=== PATIENT | female | born 1970 ===

== ENCOUNTER 2018-09-26 15:11 | Emergency (ER) | payer BC ==
--- NOTE | 2018-09-26 15:44 | UC ---
Lower Extremity/Ankle HPI - HPI Summary HPI Summary: Ms. Edwards woke up this morning with a painful second toe of her right foot at the base. She is not aware of any trauma. It is gradually gotten more painful and she now has swelling extending on the dorsum of her foot nearly up to her ankle. - History of Current Complaint Chief Complaint: UCLowerExtremity Stated Complaint: FOOT INJURY Time Seen by Provider: 09/26/18 15:33 Hx Obtained From: Patient ?: No Onset/Duration: Sudden Onset Severity Initially: Mild Severity Currently: Moderate Pain Intensity: 6 Aggravating Factor(s): Standing, Ambulation Alleviating Factor(s): Nothing - Risk Factors Gout Risk Factors: Age Over 40 - Allergies/Home Medications Allergies/Adverse Reactions: Allergies Allergy/AdvReac Type Severity Reaction Status Date / Time acetaminophen [From Percocet] Allergy Rash And Verified 09/26/18 15:26 Itching amoxicillin [From Augmentin] Allergy Vomiting Verified 09/26/18 15:26 clavulanic acid Allergy Vomiting Verified 09/26/18 15:26 [From Augmentin] oxycodone [From Percocet] Allergy Rash And Verified 09/26/18 15:26 Itching Home Medications: Home Medications Ascorbic Acid TAB* [Vitamin C TAB*] 1,000 mg PO DAILY 09/26/18 [History Confirmed 09/26/18] Calcium Carbonate [Calcium/C/D] 1 chw PO DAILY 09/26/18 [History Confirmed 09/26] Citalopram TAB* [CeleXA TAB*] 10 mg PO DAILY 09/26/18 [History Confirmed ] Multivitamin [Multivitamins] 1 cap PO DAILY 09/26/18 [History Confirmed 09/26/18 ] PMH/Surg Hx/FS Hx/Imm Hx Previously Healthy: Yes - Surgical History Surgical History: Yes Surgery Procedure, Year, and Place: c-sec 1x, uterine ablasion, arthroscopic orthopedics, laryngeal polyp removal, plastic - Social History Alcohol Use: Weekly Substance Use Type: None Smoking Status (MU): Heavy Every Day Tobacco Smoker Review of Systems All Other Systems Reviewed And Are Negative: Yes Constitutional: Positive: Negative Skin: Positive: Negative Musculoskeletal: Positive: Negative Physical Exam - Summary Physical Exam Summary: She is nontoxic in appearance with stable vital signs. Triage Information Reviewed: Yes Appearance: Well-Appearing Vital Signs: Initial Vital Signs Temp 99.5 F 09/26/18 15:20 Pulse 95 09/26/18 15:20 Resp 18 09/26/18 15:20 BP 150/87 09/26/18 15:20 Pulse Ox 100 09/26/18 15:20 Vital Signs Reviewed: Yes Respiratory Exam: Normal Cardiovascular Exam: Normal Musculoskeletal Exam: Other - She is tender and mildly erythematous over the dorsum of her foot. She has tenderness to range of motion of her second toe both passively and actively. Skin Exam: Normal Diagnostics - Radiology right foot Radiology Interpretation Completed By: Radiologist Summary of Radiographic Findings: No acute process Lower Extremity Course/Dx - Course Course Of Treatment: There is obviously an inflammatory component to this. She does not recall any trauma and my biggest concern would be that she has an early infection. I will treat her with Keflex and recommendation for anti-inflammatories. - Differential Dx/Diagnosis Provider Diagnosis: Cellulitis Discharge - Sign-Out/Discharge Documenting (check all that apply): Patient Departure All imaging exams completed and their final reports reviewed: Yes - Discharge Plan Condition: Stable Disposition: HOME Patient Education Materials: Cellulitis (ED) Referrals: No Primary Care Phys,NOPCP [Primary Care Provider] - Additional Instructions: Please follow up with your worsening or not improving. Your blood pressure was mildly elevated during her visit today. You should follow up with her PCP for further evaluation. - Billing Disposition and Condition Condition: STABLE Disposition: Home
== END 2018-09-26 16:38 | disposition home or self-care (01) ==
LOC: UCEAST 15:11
DX: L03.031 Cellulitis of right toe (principal); Z88.6 Allergy status to analgesic agent; Z88.1 Allergy status to other antibiotic agents; Z88.5 Allergy status to narcotic agent; Z88.0 Allergy status to penicillin; F17.200 Nicotine dependence, unspecified, uncomplicated
CPT/HCPCS: 99202; G0463